=== PATIENT | female | born 1985 | race Hispanic/Latino ===

== ENCOUNTER → 2019-05-19 | Outpatient (CLI) | payer OTHER ==
[~2019-05-19] MED LIST: IOPAMIDOL 370 MG/ML 200 ML INFUS..BTL INJ ONE; JUNEL1 EAC1 PO; SODIUM CHLORIDE 0.9% 50ML 50 ML ONE
--- NOTE | 2019-05-19 13:13 | Diagnostic Imaging Report ---
EXAM: CT Abdomen and Pelvis WITH contrast INDICATION: Abdominal Pain COMPARISON: None. TECHNIQUE: Abdomen and pelvis were scanned utilizing a multidetector helical scanner from the lung base to the pubic symphysis after administration of IV contrast. Coronal and sagittal reformations were obtained. Routine protocol was performed. Scan was performed when during portal venous phase. IV CONTRAST: 100 mL of Isovue-370 ORAL CONTRAST: Water COMPLICATIONS: None RADIATION DOSE: Total DLP: 214.6 mGy*cm Dose modulation, iterative reconstruction, and/or weight based adjustment of the mA/kV was utilized to reduce the radiation dose to as low as reasonably achievable. FINDINGS: LINES and TUBES: None. LOWER THORAX: Unremarkable HEPATOBILIARY: No evidence of focal lesion. No biliary ductal dilation. GALLBLADDER: No radio-opaque stones or sludge. No wall thickening. SPLEEN: No splenomegaly. PANCREAS: No focal masses or ductal dilatation. ADRENALS: No adrenal nodules KIDNEYS/URETERS: Kidneys enhance symmetrically. No evidence of hydronephrosis, solid mass, or stone. GI TRACT: No evidence of wall thickening or distension. Appendix is not well visualized. No secondary findings of appendicitis. PELVIC ORGANS/BLADDER: Unremarkable. LYMPH NODES: No lymphadenopathy. VESSELS: Unremarkable. PERITONEUM / RETROPERITONEUM: No free air or fluid. BONES AND SOFT TISSUES: Unremarkable. CONCLUSION: No acute findings in the abdomen or pelvis. Signed by: Kelly Sandy MD on 05/19/2019 1:10 PM
== END ==
LOC: CT 10:27
PROVIDERS: ATTEND Internal Medicine Gastroenterology
DX: R10.30 Lower abdominal pain, unspecified (principal)
CPT/HCPCS: 74177; Q9967

== ENCOUNTER → 2019-05-20 | Day surgery (SDC) | payer OTHER ==
[~2019-05-20] MED LIST changes: +FENTANYL CITRATE/PF 100MCG/2 ML INJ ONE; +HYOSCYAMINE 0.125 MG TAB ONE; -IOPAMIDOL 370 MG/ML 200 ML INFUS..BTL INJ ONE; +MIDAZOLAM HCL 2 MG/2 ML VIAL ONE; +PROPOFOL IV EMULSION 10 MG/ML 50 ML VIAL ONE; -SODIUM CHLORIDE 0.9% 50ML 50 ML ONE
--- OUTSIDE RECORDS SUMMARY | 2019-05-20 09:14 | XMS REPORT | Encounter Summary ---
Author Organization Unknown Address [address] [place] [address] Phone [phone] Reason for Visit Medical Complaint Instructions 1. Candidiasis of vagina vaginal yeast infection: care instructions fluconazole 150 mg tablet Discussion Note: None recorded. Plan of Care Patient Instructions A vaginal yeast infection is caused by too many yeast cells in the vagina. This is common in women of all ages. Itching, vaginal discharge and irritation, and other symptoms can bother you. But yeast infections don't often cause other health problems. Some medicines can increase your risk of getting a yeast infection. These include antibiotics, control pills, hormones, and steroids. You may also be more likely to get a yeast infection if you are , have diabetes, douche, or wear tight clothes. With treatment, most yeast infections get better in 2 to 3 days. Follow-up care is a thorne part of your treatment and safety. Be sure to make and go to all appointments, and call your doctor if you are having problems. It's also a good idea to know your test results and keep a list of the medicines you take. How can you care for yourself at home? Take your medicines exactly as prescribed. Call your doctor if you think you are having a problem with your medicine. Ask your doctor about bwvn-ftw-[id number] (OTC) medicines for yeast infections. They may cost less than prescription medicines. If you use an OTC treatment, read and follow all instructions on the label. Do not use tampons while using a vaginal cream or suppository. The tampons can absorb the medicine. Use pads instead. Wear loose cotton clothing. Do not wear nylon or other fabric that holds body heat and moisture close to the skin. Try sleeping without underwear. Do not scratch. Relieve itching with a cold pack or a cool bath. Do not wash your vaginal area more than once a day. Use plain water or a mild, unscented soap. Air-dry the vaginal area. Change out of wet swimsuits after swimming. Do not have sex until you have finished your treatment. Do not douche. When should you call for help? Call your doctor now or seek immediate medical care if: You have unexpected vaginal bleeding. You have new or increased pain in your vagina or pelvis. Watch closely for changes in your health, and be sure to contact your doctor if: You have a fever. You are not getting better after 2 days. Your symptoms come back after you finish your medicines. Reminders Provider Appointments None recorded. Lab None recorded. Referral None recorded. Procedures None recorded. Surgeries None recorded. Imaging None recorded. Medications Name Start Date fluconazole 150 mg tablet Take 1 tablet by oral route. 12/07 (21) 1 mg-20 mcg tablet TAKE ONE (1) TABLET(S) BY MOUTH ONCE A DAY FOR 90 DAYS. Medications Administered None recorded. Vitals Height Weight BMI Blood Pressure 5 ft 3 in 135 lbs 23.9 kg/m2 110/70 mm[Hg] Lab Results None recorded. Allergies Code Code System Name Reaction Severity Status Onset NKDA Problems Name Status Onset Date Source Allergic Rhinitis Active 06/24/2018 Acute Urinary Tract Infection Active 06/24/2018 Candidiasis of Vagina Active Encounter Procedures None recorded. Vaccine List Vaccine Type influenza, injectable, quadrivalent 08/18/2018 Social History Smoking Status Never Smoker Past Encounters 04/21/2019 Candidiasis of Vagina HOWARD Sullivan-C: [address] [place] [address], Ph. History of Present Illness [id number] Reported By: Patient HPI: Location: vagina. Quality: itching. Severity: mild. Context: no known exposure to STD, no prior history of STDs, sexually active, unprotected intercourse. Associated Symptoms: no fever/chills, no flank pain, no jaundice, no blood in the urine, no pain during urination, no urgency, no blisters on genitals, no rash on genitals, no muscle aches, no headache, white vaginal discharge; vaginal itching Review of Systems:ROS as noted in the HPI Review of Systems Basic Reported By: Patient Physical Exam Adult Basic, Adult Female Complete Reported By: Patient Constitutional: General Appearance: healthy-appearing, well-nourished, well-developed. Level of Distress: NAD. Ambulation: ambulating normally Psychiatric: Mental Status: active and alert. Orientation: to time, to place, to person Lungs: Respiratory effort: no dyspnea, no tachypnea, no use of accessory muscles, no intercostal retractions. Auscultation: breath sounds normal Cardiovascular: Heart Auscultation: RRR, no murmurs
--- OUTSIDE RECORDS SUMMARY | 2019-05-20 09:14 | XMS REPORT | Continuity of Care Document ---
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 Role Phone [facility] Unavailable Unavailable Problems Problem Status Onset Date Classification Date Reported Comments Source Candidiasis of vagina 04/21/2019 Diagnosis 04/21/2019 [facility] Allergic rhinitis 06/24/2018 Diagnosis 06/24/2018 [facility] Acute urinary tract infection 06/24/2018 Diagnosis 06/24/2018 [facility] Allergic Rhinitis 06/24/2018 Problem 04/21/2019 [facility] Acute Urinary Tract Infection 06/24/2018 Problem 04/21/2019 [facility] Acute pharyngitis 07/11/2016 Diagnosis 07/19/2016 [facility] Candidiasis of Vagina Problem 04/21/2019 [facility] Acute Pharyngitis Problem 07/19/2016 [facility] Acute Upper Respiratory Infection Problem 07/19/2016 [facility] Urinary Tract Infectious Disease Problem 07/19/2016 [facility] Medications Medication Details Route Status Patient Instructions Ordering Provider Order Date Source Sulfamethoxazole 800 MG / Trimethoprim 160 MG Oral Tablet [Bactrim] Bactrim DS 800 mg-160 mg tablet Take 1 tablet every 12 hours by oral route as directed for 3 days. Active [facility] Fluconazole 150 MG Oral Tablet [Diflucan] Diflucan 150 mg tablet Take 1 tablet today then repeat as directed in 3 days. Active [facility] Nystatin [id number] UNT/ML Topical Cream nystatin 100,000 unit/gram topical cream APPLY TO THE AFFECTED AREA(S) BY TOPICAL ROUTE 2 TIMES PER DAY x 7 days Active [facility] Fluconazole 150 MG Oral Tablet fluconazole 150 mg tablet Take 1 tablet by oral route. Active [facility] Junel 1/20 (21) 1 mg-20 mcg tablet [place] 1/20 (21) 1 mg- 20 mcg tablet TAKE ONE (1) TABLET(S) BY MOUTH ONCE A DAY FOR 90 DAYS. Active [facility] Fluticasone propionate 0.05 MG/ACTUAT Metered Dose Nasal [place] fluticasone 50 mcg/actuation nasal spray,suspension [place] 2 sprays every day by intranasal route as needed. Active [facility] levocetirizine dihydrochloride 5 MG Oral Tablet levocetirizine 5 mg tablet Take 1 tablet every day by oral route as needed for 30 days. Take at bedtime. Active [facility] NITROFURANTOIN, MACROCRYSTALS 25 MG / Nitrofurantoin, Monohydrate 75 MG Oral Capsule [Macrobid] Macrobid 100 mg capsule Take 1 capsule every 12 hours by oral route as directed for 5 days. Active [facility] Allergies, Adverse Reactions, Alerts No Known Medication Allergies Immunizations Immunization Date Given Site Status Last Updated Comments Source influenza, injectable, quadrivalent 08/18/2018 completed [facility] Results Order Name Results Value Reference Range Date Interpretation Comments Source Urinalysis macro (dipstick) panel - Urine COLOR : Liz 06/24/2018 [facility] Urinalysis macro (dipstick) panel - Urine CLARITY : Clear 06/24/2018 [facility] Urinalysis macro (dipstick) panel - Urine LEUKOCYTES : Moderate 06/24/2018 [facility] Urinalysis macro (dipstick) panel - Urine NITRITES : Negative 06/24/2018 [facility] Urinalysis macro (dipstick) panel - Urine UROBILINOGEN : Normal 06/24/2018 [facility] Urinalysis macro (dipstick) panel - Urine PROTEIN : 30 06/24/2018 [facility] Urinalysis macro (dipstick) panel - Urine pH : 7.0 06/24/2018 [facility] Urinalysis macro (dipstick) panel - Urine BLOOD : Negative 06/24/2018 [facility] Urinalysis macro (dipstick) panel - Urine SPECIFIC GRAVITY : 1.010 06/24/2018 [facility] Urinalysis macro (dipstick) panel - Urine KETONES : Negative 06/24/2018 [facility] Urinalysis macro (dipstick) panel - Urine BILIRUBIN : Negative 06/24/2018 [facility] Urinalysis macro (dipstick) panel - Urine GLUCOSE Negative 06/24/2018 [facility] Chlamydia trachomatis+Neisseria gonorrhoeae DNA [Presence] in Unspecified specimen by Probe and target amplification method Neisseria gonorrhoeae rRNA [Presence] in Unspecified specimen by Probe and target amplification method negative negative 07/22/2016 [facility] Chlamydia trachomatis+Neisseria gonorrhoeae DNA [Presence] in Unspecified specimen by Probe and target amplification method Chlamydia trachomatis rRNA [Presence] in Unspecified specimen by Probe and target amplification method negative negative 07/22/2016 [facility] Bacteria identified in Urine by Culture Bacteria identified in Urine by Culture Result 1 07/21/2016 [facility] Urinalysis macro (dipstick) panel - Urine COLOR : Liz 07/19/2016 [facility] Urinalysis macro (dipstick) panel - Urine CLARITY : Cloudy 07/19/2016 [facility] Urinalysis macro (dipstick) panel - Urine LEUKOCYTES : Moderate 07/19/2016 [facility] Urinalysis macro (dipstick) panel - Urine NITRITES : Negative 07/19/2016 [facility] Urinalysis macro (dipstick) panel - Urine UROBILINOGEN : Normal 07/19/2016 [facility] Urinalysis macro (dipstick) panel - Urine PROTEIN : Negative 07/19/2016 [facility] Urinalysis macro (dipstick) panel - Urine pH : 6.0 07/19/2016 [facility] Urinalysis macro (dipstick) panel - Urine BLOOD : Moderate 07/19/2016 [facility] Urinalysis macro (dipstick) panel - Urine SPECIFIC GRAVITY : 1.010 07/19/2016 [facility] Urinalysis macro (dipstick) panel - Urine KETONES : Negative 07/19/2016 [facility] Urinalysis macro (dipstick) panel - Urine BILIRUBIN : Negative 07/19/2016 [facility] Urinalysis macro (dipstick) panel - Urine GLUCOSE Negative 07/19/2016 [facility] RESULT negative 07/19/2016 [facility] SWAB LOCATION Left and Right tonsillar pillars 07/19/2016 [facility] Bacteria identified in Throat by Culture Bacteria identified in Unspecified specimen by Respiratory culture rrf 07/14/2016 [facility] Bacteria identified in Throat by Culture Bacteria identified in Unspecified specimen by Respiratory culture final report 07/14/2016 [facility] Bacteria identified in Throat by Culture Bacteria identified in Unspecified specimen by Respiratory culture rrf 07/14/2016 [facility] Bacteria identified in Throat by Culture Bacteria identified in Unspecified specimen by Respiratory culture final report 07/14/2016 [facility] Urinalysis macro (dipstick) panel - Urine COLOR : Liz 07/11/2016 [facility] Urinalysis macro (dipstick) panel - Urine CLARITY : Cloudy 07/11/2016 [facility] Urinalysis macro (dipstick) panel - Urine LEUKOCYTES : Moderate 07/11/2016 [facility] Urinalysis macro (dipstick) panel - Urine NITRITES : Negative 07/11/2016 [facility] Urinalysis macro (dipstick) panel - Urine UROBILINOGEN : Normal 07/11/2016 [facility] Urinalysis macro (dipstick) panel - Urine PROTEIN : Negative 07/11/2016 [facility] Urinalysis macro (dipstick) panel - Urine pH : 6.0 07/11/2016 [facility] Urinalysis macro (dipstick) panel - Urine BLOOD : Moderate 07/11/2016 [facility] Urinalysis macro (dipstick) panel - Urine SPECIFIC GRAVITY : 1.010 07/11/2016 [facility] Urinalysis macro (dipstick) panel - Urine KETONES : Negative 07/11/2016 [facility] Urinalysis macro (dipstick) panel - Urine BILIRUBIN : Negative 07/11/2016 [facility] Urinalysis macro (dipstick) panel - Urine GLUCOSE Negative 07/11/2016 [facility] RESULT negative 07/11/2016 [facility] SWAB LOCATION Left and Right tonsillar pillars 07/11/2016 [facility] Pathology Reports No Data Provided for This Section Diagnostic Reports No Data Provided for This Section Consultation Notes No Data Provided for This Section Discharge Summaries No Data Provided for This Section History and Physicals No Data Provided for This Section Vital Signs Vital Sign Value Date Comments Source Diastolic (mm Hg) 70 04/21/2019 [facility] Height 63 04/21/2019 [facility] Systolic (mm Hg) 110 04/21/2019 [facility] Weight 135 04/21/2019 [facility] Diastolic (mm Hg) 70 06/24/2018 [facility] Height 63 06/24/2018 [facility] Systolic (mm Hg) 110 06/24/2018 [facility] Weight 130 06/24/2018 [facility] Diastolic (mm Hg) 80 07/19/2016 [facility] Height 63 07/19/2016 [facility] Systolic (mm Hg) 114 07/19/2016 [facility] Weight 140 07/19/2016 [facility] Diastolic (mm Hg) 80 07/11/2016 [facility] Height 63 07/11/2016 [facility] Systolic (mm Hg) 118 07/11/2016 [facility] Weight 140 07/11/2016 [facility] Encounters Location Location Details Encounter Type Encounter Number Reason For Visit Attending Provider ADM Date DC Date Status Source [place] - [facility] - [id number] Donna Walker, HTML WEB DEVELOPER: [address], [place] [address], Ph. [phone] [id number] Donna Walker 07/11/2016 [facility] [place] [facility] - [id number] Donna Walker, HTML WEB DEVELOPER: [address], [place] [address], Ph. [id number] Donna Walker 07/11/2016 [facility] [place] [facility] - [id number] Leatha Gaines, HTML WEB DEVELOPER: [address], [place] [address], Ph. [id number] Leatha Gaines 07/19/2016 [facility] [place] [facility] - [id number] Leatha Gaines, HTML WEB DEVELOPER: [address], [place] [address], Ph. [id number] Leatha Gaines 07/19/2016 [facility] [place] [facility] - [id number] Silvana Patel, HTML WEB DEVELOPER-C: [address], [place] [address], Ph. [id number] Silvana Patel 06/24/2018 [facility] [place] [facility] - [id number] Jag Whitesakwe, HTML WEB DEVELOPER-C: [address], [place] [address], Ph. [id number] Jag Mackey 04/21/2019 [facility] Procedures No Data Provided for This Section Assessment and Plan No Data Provided for This Section Plan of Care No Data Provided for This Section Social History Social History Date Source Smoking Status Never Smoker 04/16/2012 [facility] Family History No Data Provided for This Section Advance Directives No Data Provided for This Section Functional Status No Data Provided for This Section
--- OUTSIDE RECORDS SUMMARY | 2019-05-20 09:14 | XMS REPORT | Encounter Summary ---
Author Organization Unknown Address [address] [place] [address] Phone [phone] Reason for Visit Medical Complaint Instructions 1. Candidiasis of vagina vaginal yeast infection: care instructions Diflucan 150 mg tablet nystatin 100,000 unit/gram topical cream 2. Acute urinary tract infection urinalysis, dipstick Macrobid 100 mg capsule culture, urine 3. Allergic rhinitis allergies: care instructions fluticasone 50 mcg/actuation nasal spray,suspension levocetirizine 5 mg tablet Discussion Note Pt is in NAD; Verbalizes understanding of all instructions with no questions at this time. Plan of Care Patient Instructions Take fluticasone as needed for congestion. Baker one spray in each nostril twice a day. Take a warm, steamy shower, blow your nose thereafter, and spray in each nostril. Tilt your head up for about 10 seconds and breath through your mouth. Do not sniff or snort the medication in or else the medication will go to your throat and not be absorbed appropriately. Take levocetirizine for allergy like symptoms like runny nose, sneezing and watery eyes.Recommend proper hydration and frequent urination. Avoid douching, Recommend urinating after sexual intercourse. Recommend wipe front to back after urinating. Avoid using tubs. If you develop symptoms of yeast infections start fluconzole and take as directed. May repeat dose if symptoms still present 72 hrs after yefri dose. Return to clinic or follow up with your PCP within 2-3 days if symptoms worsen as discussed. We will call you with your lab results. Reminders Provider Appointments None recorded. Lab Urinalysis, Dipstick 06/24/2018 [facility] Culture, Urine 06/24/2018 [facility] Referral None recorded. Procedures None recorded. Surgeries None recorded. Imaging None recorded. Medications Name Start Date Diflucan 150 mg tablet Take 1 tablet today then repeat as directed in 3 days. fluticasone 50 mcg/actuation nasal spray,suspension [place] 2 sprays every day by intranasal route as needed. Aprill 12/07 (21) 1 mg-20 mcg tablet TAKE ONE (1) TABLET(S) BY MOUTH ONCE A DAY FOR 90 DAYS. levocetirizine 5 mg tablet Take 1 tablet every day by oral route as needed for 30 days. Take at bedtime. Macrobid 100 mg capsule Take 1 capsule every 12 hours by oral route as directed for 5 days. nystatin 100,000 unit/gram topical cream APPLY TO THE AFFECTED AREA(S) BY TOPICAL ROUTE 2 TIMES PER DAY x 7 days Medications Administered None recorded. Vitals Height Weight BMI Blood Pressure 5 ft 3 in 130 lbs 23 kg/m2 110/70 mm[Hg] Lab Results Date Name Specimen Result Interpretation Description Value Range Status Address 06/24/2018 Urinalysis, Dipstick Color : Liz [facility]: [address] [place] [address] Clarity : Clear [facility]: [address] [place] [address] Leukocytes : Moderate [facility]: [address] [place] [address] Nitrites : Negative [facility]: [address] [place] [address] Urobilinogen : Normal [facility]: [address] [place] [address] Protein : 30 [facility]: [address] [place] [address] Ph : 7.0 [facility]: [address] [place] [address] Blood : Negative [facility]: [address] [place] [address] Specific Anderson : 1.010 [facility]: [address] [place] [address] Ketones : Negative [facility]: [address] [place] [address] Bilirubin : Negative [facility]: [address] [place] [address] Glucose Negative [facility]: [address] [place] [address] Allergies Code Code System Name Reaction Severity Status Onset NKDA Problems Name Status Onset Date Source Allergic Rhinitis Active 06/24/2018 Acute Urinary Tract Infection Active 06/24/2018 Candidiasis of Vagina Active Encounter Procedures None recorded. Vaccine List None recorded. Social History Smoking Status Never Smoker Past Encounters 06/24/2018 Candidiasis of Vagina; Acute Urinary Tract Infection; Allergic Rhinitis Silvana Patel, HOWARD-C: [address] [place] [address], Ph. History of Present Illness [id number] Reported By: Patient HPI: Location: vagina. Quality: burning, itching, swelling. Severity: worsening, moderate. Duration: constant. Onset/Timing: worse, gradual. Context: no known exposure to STD, no prior history of STDs, sexually active, [id number], heterosexual, vaginal intercourse, history of urine cultures/antibiotic treatment, wipes anterior to posterior, voids after intercourse. Modifying factors ; Has not taken anything. Associated Symptoms: no fever/chills, no flank pain, no jaundice, no blood in the urine, no pain during urination, no vaginal discharge, no urgency, no blisters on genitals, no rash on genitals, no muscle aches, no headache; vaginal pruritus and irritation [id number]-Usuosoznug-Gpeyuws Reported By: Patient HPI: Location: head/sinuses. Quality: nasal/sinus congestion. Duration: ; x 1 week. Severity: moderate. Onset/Timing: gradual. Context: no sick contacts, no foreign travel, non-smoker, allergies. Modifying factors: ; has not taken anything. Associated Symptoms: no sputum production, no shortness of breath, no wheezing, no change in number of pillows needed to sleep at night, no sweats, no significant weight gain, no significant weight loss, no morning cough, no sore throat, no vomiting, no diarrhea, no rash, no nausea, no fever, no muscle aches, no headache; nasal congestion and post nasal drip Note:
Review of Systems Basic Reported By: Patient Constitutional: Constitutional: no fever Eyes: Eyes: no eye complaints Cryx-Puxp-Sdqhv-Throat: Ears: no ear complaints. Nose: nose/sinus problems. Mouth/Throat: no sore throat, no bleeding gums, no mouth complaints, no teeth problems Cardiovascular: Cardiovascular: no chest pain, no shortness of breath, no known heart murmur Respiratory: Respiratory: no cough, no wheezing, no shortness of breath Gastrointestinal: Gastrointestinal: no abdominal pain, no vomiting / diarrhea Genitourinary: Genitourinary: no urinary complaints, no discharge, vaginal itching; and irritation Musculoskeletal: Musculoskeletal: no muscle aches, no muscle weakness, no arthralgias/joint pain, no back pain Skin: Skin: no abnormal / changing mole, no jaundice, no rashes Neurologic: Neurologic: no loss of consciousness, no weakness, no numbness, no seizures, no dizziness, no headaches Physical Exam Adult Basic, Adult Female Complete Reported By: Patient Constitutional: General Appearance: healthy-appearing, well-nourished, well-developed. Level of Distress: NAD. Ambulation: ambulating normally Psychiatric: Mental Status: active and alert. Orientation: to time, to place, to person Eyes: Lids and Conjunctivae: non-injected, no discharge, no pallor. Corneas: grossly intact. Lens: clear Qlq-Wziz-Etwsu-Throat: Ears: no lesions on external ear, no outer ear tenderness, EACs clear, TMs clear. Hearing: no hearing loss. Nose: no lesions on external nose, nares patent, no septal deviation, nasal passages clear, no sinus tenderness, post nasal drip; B/L NTs pale and edematous. Lips, Teeth, and Gums: no mouth or lip ulcers, no bleeding gums, normal dentition. Oropharynx: moist mucous membranes, no erythema, no exudates, tonsils not enlarged Neck: Neck: supple. Lymph Nodes: no cervical LAD Lungs: Respiratory effort: no dyspnea, no tachypnea, no use of accessory muscles, no intercostal retractions. Auscultation: breath sounds normal Cardiovascular: Heart Auscultation: RRR, no murmurs Musculoskeletal:: Extremities: no edema Neurologic: Gait and Station: normal gait, normal station. Cranial Nerves: grossly intact. Sensation: grossly intact Abdomen: Bowel Sounds: normal. Inspection and Palpation: soft, non-distended, no tenderness, no guarding, no rebound tenderness, no masses, no CVA tenderness. Liver: non-tender, no hepatomegaly. Spleen: non-tender, no splenomegaly. Hernia: none palpable
--- OUTSIDE RECORDS SUMMARY | 2019-05-20 09:15 | XMS REPORT | Encounter Summary ---
Author Organization Unknown Address [address] [place] [address] Phone [phone] Reason for Visit Medical Complaint; possible yest infection x 3 days Instructions 1. Candidiasis of vagina Diflucan 150 mg tablet nystatin 100,000 unit/gram topical cream 2. Acute urinary tract infection urinalysis, dipstick Bactrim DS 800 mg-160 mg tablet culture, urine CT + NG DNA, PCR, unspecified specimen Discussion Note: None recorded. Patient educational handouts: No information available. Plan of Care Patient Instructions Increase fluid intake. Take med as prescribed.. Wipe front to back.Wear loose cotton underwear. May start on probiotic otc daily. May take cranberry juice for preventative. If symptoms worsen follow with severe back pain, chills, fever, abdominal pain call clinic. Reminders Provider Appointments None recorded. Lab Urinalysis, Dipstick 07/19/2016 [facility] Culture, Urine 07/19/[address] [facility] [address] + NG DNA, PCR, Unspecified Specimen 07/19/2016 [facility] Referral None recorded. Procedures None recorded. Surgeries None recorded. Imaging None recorded. Medications Name Start Date Bactrim DS 800 mg-160 mg tablet Take 1 tablet every 12 hours by oral route as directed for 3 days. Diflucan 150 mg tablet Take 1 tablet today then repeat in 3 days nystatin 100,000 unit/gram topical cream APPLY TO THE AFFECTED AREA(S) BY TOPICAL ROUTE 2 TIMES PER DAY x 14 days Medications Administered None recorded. Vitals Height Weight BMI Blood Pressure 5 ft 3 in 140 lbs 24.8 114/80 Lab Results Date Name Result Description Value Range Status 07/11/2016 Culture, Throat Result 1 rrf Final Upper Respiratory Culture final report Final Rapid Strep Group a, Throat Result negative Swab Location Left and Right tonsillar pillars Urinalysis, Dipstick Color : Liz Clarity : Cloudy Leukocytes : Moderate Nitrites : Negative Urobilinogen : Normal Protein : Negative Ph : 6.0 Blood : Moderate Specific [place] : 1.010 Ketones : Negative Bilirubin : Negative Glucose Negative Allergies Name Reaction Severity Onset NKDA Problems Name Status Onset Date Source Candidiasis of Vagina Active Encounter Acute Pharyngitis Active Encounter Acute Upper Respiratory Infection Active Encounter Allergic Rhinitis Active Encounter Urinary Tract Infectious Disease Active Encounter Acute Urinary Tract Infection Active Encounter Procedures None recorded. Vaccine List None recorded. Social History Smoking Status Never Smoker Past Encounters 07/19/2016 Candidiasis of Vagina; Acute Urinary Tract Infection Leatha Gaines, INCLINED RAILWAY OPERATOR: [address] [place] [address], Ph. 07/11/2016 Allergic Rhinitis; Acute Pharyngitis Donna Walker, INCLINED RAILWAY OPERATOR: [address] [facility], [place] [address], Ph. History of Present Illness [id number] Reported By: Patient HPI: Location: urethra, vagina. Quality: burning. Severity: worsening. Duration: constant. Onset/Timing: worse. Context: not sexually active, no known exposure to STD, no prior history of STDs. Modifying factors OTC medication. Associated Symptoms: no fever/chills, no flank pain, no jaundice, no blood in the urine, no pain during urination, no urgency, no blisters on genitals, no rash on genitals, white vaginal discharge Review of Systems Basic Reported By: Patient Constitutional: Constitutional: no fever Eyes: Eyes: no eye complaints Rnpt-Rmgg-Vjocw-Throat: Ears: no ear complaints. Nose: no nose/sinus problems. Mouth/Throat: no sore throat, no bleeding gums, no mouth complaints, no teeth problems Cardiovascular: Cardiovascular: no chest pain, no shortness of breath, no known heart murmur Respiratory: Respiratory: no cough, no wheezing, no shortness of breath Gastrointestinal: Gastrointestinal: no abdominal pain, no vomiting / diarrhea Genitourinary: Genitourinary: dysuria, urinary urgency, discharge, vaginal itching Musculoskeletal: Musculoskeletal: no muscle aches, no muscle weakness, no arthralgias/joint pain, no back pain Skin: Skin: no abnormal / changing mole, no jaundice, no rashes Neurologic: Neurologic: no loss of consciousness, no weakness, no numbness, no seizures, no dizziness, no headaches Physical Exam Adult Basic, Adult Female Complete Constitutional: General Appearance: healthy-appearing, well-nourished, well-developed. Level of Distress: NAD. Ambulation: ambulating normally Psychiatric: Mental Status: active and alert. Orientation: to time, to place, to person Cardiovascular: Heart Auscultation: RRR, no murmurs. Neck vessels: no carotid bruits Abdomen: Bowel Sounds: normal. Inspection and Palpation: soft, non-distended, no guarding, no rebound tenderness, no masses, no CVA tenderness, suprapubic tenderness. Liver: non-tender, no hepatomegaly. Spleen: non-tender, no splenomegaly. Hernia: none palpable Female : External genitalia: abnormal, rash; Vaginal with thick white curd discharge and mild moist rash to labia minora. Vagina: abnormal discharge
--- OUTSIDE RECORDS SUMMARY | 2019-05-20 09:15 | XMS REPORT ---
Author Author [facility] Address Unknown Phone Unavailable Care Team Providers Care Video Tape Transferrer Name Role Phone BAO GARG Unavailable Unavailable Problems This patient has no known problems. Allergies, Adverse Reactions, Alerts This patient has no known allergies or adverse reactions. Medications This patient has no known medications. Results Test Description Test Time Test Comments Text Results Atomic Results Result Comments CT ABDOMEN/PELVIS W 2019-05-19 12:59:00 [facility] [address] [address] Patient Name: MELANIE ESCOBAR MR #: [id number] : 1985 Age/Sex: 34/F Req #: [id number] Adm Physician: Ordered by: BAO GARG MD Report #: [id number] Location: CT Room/Bed: Procedure: [id number] CT/CT ABDOMEN/PELVIS W Exam Date: 05/19/19 Exam Time: 1130 REPORT STATUS: Signed EXAM: CT Abdomen and Pelvis WITH contrast INDIC ATION: Abdominal Pain COMPARISON: None. TECHNIQUE: Abdomen and pelvis were scanned utilizing a multidetector helical scanner from the lung base to the pubic symphysis after administration of IV contrast. Coronal and sagittal reformations were obtained. Routine protocol was performed. Scan was performed when during portal venous phase. IV CONTRAST: 100 mL of Isovue-370 ORAL CONTRAST: Water COMPLICATIONS: None RADIATION DOSE: Total DLP: 214.6 mGy*cm Dose modulation, iterative reconstruction, and/or weight based adjustment of the mA/kV was utilized to reduce the radiation dose to as low as reasonably achievable. FINDINGS: LINES and TUBES: None. LOWER THORAX: Unremarkable HEPATOBILIARY: No evidence of focal lesion. No biliary ductal dilation. GALLBLADDER: No radio-opaque stones or sludge. No wall thickening. SPLEEN: No splenomegaly. PANCREAS: No focal masses or ductal dilatation. ADRE NALS: No adrenal nodules KIDNEYS/URETERS: Kidneys enhance symmetrically. No evidence of hydronephrosis, solid mass, or stone. GI TRACT: No evidence of wall thickening or distension. Appendix is not well visualized. No secondary findings of appendicitis. PELVIC ORGANS/BLADDER: Unremarkable. LYMPH NODES: No lymphadenopathy. VESSELS: Unremarkable. PERITONEUM / RETROPERITONEUM: No free air or fluid. BONES AND SOFT TISSUES: Unremarkable. CONCLUSION: No acute findings in the abdomen or pelvis. Signed by: Kayla Bryant MD on 05/19/2019 1:10 PM Dictated By: KAYLA BRYANT MD [id number] Transcribed By: JOHANNY on 05/19/19 1310 COPY TO: BAO GARG MD
--- OUTSIDE RECORDS SUMMARY | 2019-05-20 09:15 | XMS REPORT | Encounter Summary ---
Author Organization Unknown Address [address] [place] [address] Phone [phone] Reason for Visit Medical Complaint Instructions 1. Allergic rhinitis allergies: care instructions Xyzal 5 mg tablet fluticasone 50 mcg/actuation nasal spray,suspension 2. Acute pharyngitis rapid strep group A, throat culture, throat sore throat: care instructions Discussion Note: None recorded. Plan of Care Patient Instructions Please seek care (PCP, Urgent Care, ER) if symptoms get worse or do not resolve in3 daysor if you notice any signs of infection including fever,redness, tenderness or yellow discharge or onset of shortness of breath, lips or tounge swelling. Try warm salt water gargles, throat lozanges, soups ortea with honey and/or lemon juice to soothe the throat.Take ibuprofen or tylenolevery 6 hours as needed for sore throat.Follow up with PCP/UC/ERif symptoms getworse or no improvement in 3 to 4 days. Please read all the side effects of the medications, if you develop any side effects immediately stop the medication and please contact [facility] or call [facility]. Patient verbalizes understanding and agrees to the plan. Reminders Provider Appointments None recorded. Lab Rapid Strep Group a, Throat 07/11/2016 [facility] Culture, Throat 07/11/2016 [facility] Referral None recorded. Procedures None recorded. [...] 5 ft 3 in 140 lbs 24.8 118/80 Lab Results Date Name Result Description Value Range Status 07/19/2016 CT + NG DNA, PCR, Unspecified Specimen Neisseria Gonorrhoeae, EDDI negative negative Final Chlamydia Trachomatis, EDDI negative negative Final 07/19/2016 Culture, Urine Result 1 mug Final Urine Culture, Routine final report Final 07/11/2016 Culture, Throat Result 1 rrf Final Upper Respiratory Culture final report Final Rapid Strep Group a, Throat Result negative Swab Location Left and Right tonsillar pillars Urinalysis, Dipstick Color : Liz Clarity : Cloudy Leukocytes : Moderate Nitrites : Negative Urobilinogen : Normal Protein : Negative Ph : 6.0 Blood : Moderate Specific [place] : 1.010 Ketones : Negative Bilirubin : [...] Candidiasis of Vagina; Acute Urinary Tract Infection CORTEZ LindsayP: [address] [place] [address], Ph. 07/11/2016 Allergic Rhinitis; Acute Pharyngitis Donna Walker MANAGER PROVIDER RELATIONS: [address] [place] [address], Ph. History of Present Illness Throat-Oral Complaint Reported By: Patient HPI: Quality: sore throat. Severity: moderate. Duration: on and off for 2 weeks days. Onset/Timing: gradual. Context: no sick contacts, no foreign travel, non- smoker, allergies. Modifying factors: OTC medication. Associated Symptoms: no sputum production, no shortness of breath, no wheezing, no change in number of pillows needed to sleep at night, no sweats, no significant weight gain, no significant weight loss, no morning cough, no vomiting, no diarrhea, no rash, no nausea, sore throat Notes: Pt also reports PND, sneezing and nasal congestin/runny nose. Review of Systems Basic Reported By: Patient Constitutional: Constitutional: no fever Eyes: Eyes: no eye complaints Jnol-Rqhn-Tkard-Throat: Ears: no ear complaints. Nose: nose/sinus problems. Mouth/Throat: no bleeding gums, no mouth complaints, no teeth problems, sore throat Cardiovascular: Cardiovascular: no chest pain, no shortness of breath, no known heart murmur Respiratory: Respiratory: no cough, no wheezing, no shortness of breath Gastrointestinal: Gastrointestinal: no abdominal pain, no vomiting / diarrhea Genitourinary: Genitourinary: no urinary complaints, no discharge Musculoskeletal: Musculoskeletal: no muscle aches, no muscle [...] and Conjunctivae: non-injected, no discharge, no pallor. Pupils: PERRLA. EOM: EOMI. Lens: clear. Sclerae: non-icteric. Vision: acuity grossly intact Iym-Fccd-Kicdh-Throat: Ears: no lesions on external ear, no outer ear tenderness, EACs clear, TMs clear. Hearing: no hearing loss. Nose: no lesions on external nose, nares patent, no septal deviation, nasal passages clear, no sinus tenderness, nasal discharge--rhinorrhea, post nasal drip; pale swollen nasal mucosa. Lips, Teeth, and Gums: no mouth or lip ulcers, no bleeding gums, normal dentition. Oropharynx: moist mucous membranes, no exudates, tonsils not enlarged, erythema Neck: Neck: supple. Lymph Nodes: no cervical LAD Lungs: Respiratory effort: no dyspnea, no tachypnea. Auscultation: breath sounds normal Cardiovascular: Heart Auscultation: RRR, no murmurs Neurologic: Gait and Station: normal gait Skin: Inspection and palpation: no rash
[2019-05-20 15:20] VITALS: BP 106/60
[2019-05-20 15:51] LABS: WBC,FECAL (FECAL LACTOFERRIN) POSITIVE (NEGATIVE)
--- NOTE | 2019-05-20 15:54 | Operative Report ---
DATE OF PROCEDURE: 05/20/2019 SURGEON: Leo Rucker MD PROCEDURE: Esophagogastroduodenoscopy with biopsies and colonoscopy with biopsies. INDICATIONS FOR EGD: History of heartburn, bloating, nausea. INDICATIONS FOR COLONOSCOPY: Crampy lower abdominal pain, chronic diarrhea. MEDICATIONS: The patient was done under MAC, please see anesthesiologist's note. PROCEDURE IN DETAIL: With the patient in left lateral decubitus position, flexible fiberoptic Olympus gastroscope was introduced into the esophagus under direct visualization without any difficulty. There was some patchy erythema noted in distal esophagus. The scope was then advanced with ease into the stomach. Mucosa overlying the antrum and the body revealed some patchy erythema and [id number] edema. Biopsies were obtained, sent to stain for H pylori. The pylorus was of normal contour and shape, it was intubated with ease and the scope was advanced all the way to the second portion of the duodenum. Biopsies were obtained from the second portion and duodenal bulb to rule out sprue. The scope was then withdrawn back into the stomach and retroflexed and mucosa overlying the fundus and the cardia appeared to be within normal limits. The scope was then straightened out, it was subsequently withdrawn. The patient tolerated the procedure well. IMPRESSION: 1. Mild distal esophagitis. 2. Gastritis, biopsied. Biopsies sent to stain for Helicobacter pylori. 3. Rule out sprue. PLAN: Follow up histology. Initiate Protonix 40 mg one p.o. q.a.m. a.c. PROCEDURE IN DETAIL: The patient was then turned around and after adequate lubrication of the anal canal the flexible fiberoptic Olympus colonoscope was inserted into the rectum with ease and advanced all the way to the cecum. Mucosa overlying the cecum appeared to be within normal limits. The ileocecal valve was intubated and the scope was advanced into the terminal ileum. Biopsies were obtained. The scope was then withdrawn back into the colon. It was then withdrawn slowly. Mucosa overlying the ascending and the transverse colon grossly appeared to be within normal limits. There were some mild patchy inflammatory changes noted in the left colon and the rectum. Random biopsies were obtained. The scope was then retroflexed into the distal rectum and small internal hemorrhoids were noted, none of which was actively bleeding. The scope was then straightened out, it was subsequently withdrawn after securing an adequate stool specimen that was sent for the appropriate stool studies. The patient tolerated the procedure well. IMPRESSION: 1. Mild patchy left-sided colitis. 2. Proctitis, mild. 3. Internal hemorrhoids, none actively bleeding. PLAN: Follow up histology. Follow up stool studies. Initiate Bentyl 10 mg one p.o. t.i.d. VSL#3 one p.o. b.i.d. Leo Rucker MD [facility] [place]/MODL /[id number]
[2019-05-21 13:09] LABS: C DIFFICILE TOXIN A&B AMP PROB NEGATIVE (NEGATIVE)
== END | disposition home or self-care (01) ==
LOC: OR 09:07
PROVIDERS: ATTEND Internal Medicine Gastroenterology
DX: K29.50 Unspecified chronic gastritis without bleeding (principal); K51.50 Left sided colitis without complications; K21.0 Gastro-esophageal reflux disease with esophagitis; K64.8 Other hemorrhoids; K62.89 Other specified diseases of anus and rectum; D72.820 Lymphocytosis (symptomatic); I20.9 Angina pectoris, unspecified; F41.9 Anxiety disorder, unspecified
CPT/HCPCS: 43239; 45380; 81025; 83630; 83993; 87045; 87177; 87328; 87493; J2250; J2704; 45378; J3010